=== PATIENT | male | born 1960 | race Two or more races ===

== ENCOUNTER 2025-03-02 15:49 | Emergency (ER) | payer OTHER ==
[~2025-03-02] VITALS: Ht 170.2 cm; Wt 106.8 kg
[2025-03-02] MEDS: IBUPROFEN 800 MG TAB PO ONE (18:33)
[2025-03-02] MEDS: ACETAMINOPHEN 325 MG TAB PO ONE (18:33)
[2025-03-02] MEDS: TETANUS-DIPTH-ACEL PERTUSSIS 0.5ML SYR Tdap IM ONE (18:37)
--- NOTE | 2025-03-02 18:38 | ED.PDOC ---
Foreign Body HPI Comments This is a 65 year-old male who presents to the ED with a chief complaint of foreign body to the L hand, 4th digit today. Patient reports working with a drill when the drill bit struck his hand. Patient has no further complaints or modifying factors at this time. Patient denies any N/V/D, fever, chills, dizziness, or weakness. Bleeding is controlled at this time, no signs of drainage, wound is simple. Chief Complaint: Foreign Body Time Seen by MD: 18:19 History of Present Illness: Medications, Allergies Allergies: Coded Allergies: NO KNOWN ALLERGIES (Unverified , 03/02/25) Home Meds Active Scripts Naproxen (NAPROSYN TABLET) 500 Mg Tb, 1 TAB PO BID, #10 TAB 1 Refill Prov:ARLEN CREWS 03/02/25 Amoxicillin & Pot Clavulanate (AUGMENTIN TABLET) 875 Mg Tb, 875 MG PO BID for 5 Days, #10 TAB Prov:ARLEN CREWS 03/02/25 Cephalexin (KEFLEX CAPSULE) 250 Mg Cp, 2 CAP PO BID, #28 CAP Prov:ARLEN CREWS 03/02/25 Information Source: Patient Mode of Arrival: Ambulatory Duration: Since onset Severity: Moderate Location: Left (hand, 4th digit ) Foreign Body: Other (5 cm drill bit) Removal: Was successful Past Medical History PAST MEDICAL HISTORY: Denies Surgical History: Denies all surgeries Family History Family History: Reviewed,noncontributory to illness, No family hx of Cancer, No family hx of DM, No family hx of Heart juan, No family hx of HTN, No family hx ofKidney juan, No family hx of Liver juan, No family hx of Lung juan, No family hx of Stroke Social History Smoker: Non-Smoker Alcohol: Denies ETOH Use Drugs: Denies Drug Use Lives In: Home Constitutional: denies: chills, diaphoresis, fatigue, fever, malaise, sweats, weakness, others EENTM: denies: blurred vision, double vision, ear bleeding, ear discharge, ear drainage, ear pain, ear ringing, eye pain, eye redness, hearing loss, mouth pain, mouth swelling, nasal discharge, nose bleeding, nose congestion, nose pain, photophobia, tearing, throat pain, throat swelling, voice changes, others Respiratory: denies: cough, hemoptysis, orthopnea, SOB at rest, shortness of breath, SOB with excertion, stridor, wheezing, others Cardiovascular: denies: chest pain, dizzy spells, diaphoresis, Dyspnea on exertion, edema, irregular heart beat, left arm pain, lightheadedness, palpitations, PND, syncope, others Gastrointestinal: denies: abdomen distended, abdominal pain, blood streaked bowels, constipated, diarrhea, dysphagia, difficulty swallowing, hematemesis, melena, nausea, poor appetite, poor fluid intake, rectal bleeding, rectal pain, vomiting, others Genitourinary: denies: burning, dysuria, flank pain, frequency, hematuria, in continence, penile discharge, penile sore, pain, testicle pain, testicle swelling, urgency, others Neurological: denies: dizziness, fainting, headache, left sided numbness, left sided weakness, numbness, paresthesia, pre-existing deficit, right sided numbness, right sided weakness, seizure, speech problems, tingling, tremors, weakness, others Musculoskeletal: denies: back pain, gout, joint pain, joint swelling, muscle pain, muscle stiffness, neck pain, others Integumetry: reports: laceration (foreign body to L hand 4th digit ); denies: bruises, change in color, change in hair/nails, dryness, lesions, lumps, rash, wounds, others Allergic/Immunocompromised: denies: Difficulty Healing, Frequent Infections, Hives, Itching, others Hematologic/Lymphatic: denies: anemia, blood clots, easy bleeding, easy bruising, swollen glands, others Endocrine: denies: excessive hunger, excessive sweating, excessive thirst, excessive urination, flushing, intolerance to cold, intolerance to heat, unexplained weight gain, unexplained weight loss, others Psychiatric: denies: anxiety, bipolar disorder, depression, hopeless, panic disorder, schizophrenia, sleepless, suicidal, others All Other Systems: Reviewed and Negative Physical Exam General Appearance: Mild Distress HEENT: NOT DONE Neck: Non-Tender Respiratory: No Respiratory Distress Cardiovascular: Normal Peripheral Pulses, Regular Rate/Rhythm Breast Exam: Deferred Gastrointestinal: NOT DONE Genitalia: Deferred Pelvic: None Rectal: Deferred Extremities: NOT DONE Musculoskeletal : Location: Left (left 4th digit drill bit approx 4 cm through distal tip medial to lateral. Otherwise Full rom with no pain, paresthesia, tingling or numb. intact radial pulses and cap refills) Neurologic: No Motor Deficits Cerebellar Function: NOT DONE Reflexes: NOT DONE Skin: Lacerations Lymphatic: NOT DONE Was a procedure done? Was a procedure done?: Yes Sedation Sedation?: No Foreign Body Removal Foreign body in: Skin, Muscle, Joint Anesthetic: Lidocaine Prep: Prep, Betadine, Irrigation Procedure: Removed Informed consent obtained: Yes Risks/benefits/alt described: Yes Laceration Repair : Location L hand 4th digit Length 2cm Anesthetic: Lidocaine, Without epi Laceration Repair Prep: Saline Laceration Repair Wound Comple: epidermis/dermis repair Laceration Repair: Number of sutures (3), Simple, Non-adherent gauze Informed consent obtained: Yes Risks, benefits, and alternati: Yes FB Differential Dx Differential Diagnosis: Foreign Body X-Ray, Labs, Meds, VS Vital Signs Date Time Temp Pulse Resp B/P (MAP) Pulse Ox O2 Delivery O2 Flow Rate FiO2 03/02/25 19:05 98.2 57 18 161/73 (102) 100 98.2 03/02/25 18:33 98.3 03/02/25 18:33 98.2 03/02/25 16:58 98.1 69 16 158/68 (98) 97 98.1 03/02/25 16:58 69 16 97 Room Air 03/02/25 15:51 68 20 168/79 95 Current Medications Medications (Trade) Dose Ordered Sig/Liliana Route Start Time Stop Time Status Last Admin Diphtheria/ Tetanus/Acell Pertussis (Boostrix T-Dap) 0.5 ml ONCE ONCE IM 03/02/25 18:30 03/02/25 18:31 DC 03/02/25 18:37 Ibuprofen (Motrin Tablet) 800 mg ONCE ONCE PO 03/02/25 18:30 03/02/25 18:31 DC 03/02/25 18:33 Acetaminophen (Tylenol Tablet) 650 mg ONCE ONCE PO 03/02/25 18:30 03/02/25 18:31 DC 03/02/25 18:33 pt refused xrays Time of 1ST Reevaluation: 19:10 Reevaluation 1ST: Unchanged Patient Education/Counseling: Diagnosis, Treatment Family Education/Counseling: No Family Present Departure 1 Departure Time of Disposition: 20:54 Impression: Primary Impression: Foreign body of finger of left hand Qualified Codes: S60.459A - Superficial foreign body of unspecified finger, initial encounter Disposition: HOME / SELF CARE / HOMELESS Condition: Stable e-Prescriptions Naproxen (NAPROSYN TABLET) 500 Mg Tb 1 TAB PO BID, #10 TAB 1 Refill Prov: ARLEN CREWS 03/02/25 Amoxicillin & Pot Clavulanate (AUGMENTIN TABLET) 875 Mg Tb 875 MG PO BID for 5 Days, #10 TAB Prov: ARLEN CREWS 03/02/25 Cephalexin (KEFLEX CAPSULE) 250 Mg Cp 2 CAP PO BID, #28 CAP Prov: ARLEN CREWS 03/02/25 Discharged With: Self Critical Care Note Critical Care Time?: No Stability Stability form required: No Heart Score Heart Score: Heart Score Response (Comments) Value History N/A 0 EKG N/A 0 Age N/A 0 Risk Factors N/A 0 Troponin N/A 0 Total 0 I personally scribed for ER ([email or web address]) on 03/02/25 at 19:00. Electronically submitted by Lori Hill ([employer]). I personally scribed for ER ([email or web address]) on 03/02/25 at 19:03. Electronically submitted by Lori Hill ([employer]). I personally scribed for ER ([email or web address]) on 03/02/25 at 23:04. Electronically s ubmitted by Lori Hill ([employer]). ARLEN CREWS Mar 02, 2025 18:38 ER Mar 02, 2025 19:00
[2025-03-02] MEDS ORDERED: CEPH250C PO (19:00)
[2025-03-02] MEDS ORDERED: AUG875T PO (19:02)
[2025-03-02] MEDS ORDERED: NAP500T PO (19:03)
[2025-03-02 19:05] VITALS: BP 161/73; PULSE 57; RESP 18; TEMP 98.2; O2SAT 100
== END 2025-03-02 19:10 | disposition home or self-care (01) ==
LOC: ER 15:49
DX: S60.552A Superficial foreign body of left hand, initial encounter (principal); W29.8XXA Contact with other powered hand tools and household machinery, initial encounter; Y93.89 Activity, other specified; Y92.89 Other specified places as the place of occurrence of the external cause; Y99.8 Other external cause status
CPT/HCPCS: 12001; 90471; 90715; 99284; A4649